=== PATIENT | female | born 1980 | race African-American/Black ===

== ENCOUNTER 2018-01-18 16:00 | Emergency (ER) | payer OTHER ==
[~2018-01-18] VITALS: Ht 167.6 cm; Wt 151.1 kg
[~2018-01-18 16:00] MED LIST: BENTYL 10 MG CA10 M1 PO; IMODIUM A-D2 MG PO; ZOFRAN ODT4 MG PO
[2018-01-18 16:35] LABS: URINE BILIRUBIN NEGATIVE (Negative); URINE BLOOD 3+ (Negative); URINE CLARITY CLEAR; URINE COLOR YELLOW; URINE GLUCOSE-RANDOM* NEGATIVE (Negative); URINE KETONES NEGATIVE (Negative); URINE LEUKOCYTES NEGATIVE (Negative); URINE NITRITE NEGATIVE (Negative); URINE PROTEIN (DIPSTICK) NEGATIVE (Negative)
[2018-01-18 16:46] LABS: BACTERIA 1-9 Few /HPF (None Seen); CASTS None Seen /LPF (None Seen); CRYSTALS None Seen /LPF (None Seen); SQUAMOUS 0-3 Few /LPF (0-3); URINE RBC 0-2 Rare /HPF (0-2); URINE WBC None Seen /HPF (0-5)
[2018-01-18 17:50] LABS: ABSOLUTE NEUTROPHILS 3.3 thou/uL (1.4-8.2); BASOPHILS 0.4 % (0.0-2.0); EOSINOPHILS 0.9 % (0.0-3.0); HEMATOCRIT 30.3 % (37.0-47.0); HEMOGLOBIN 9.5 gm/dL (12.0-15.0); LYMPHOCYTES 39.2 % (24.0-44.0); MCH 22.5 pg (26.0-34.0); MCHC 31.5 g/dL (28.0-37.0); MCV 71.3 fL (80.0-100.0); MONOCYTES 11.9 % (1.0-8.0); PLATELET COUNT 356 thou/uL (150-400); POLYS 47.6 % (36.0-66.0); RBC 4.24 mil/uL (4.20-5.00); RDW 18.5 % (10.5-14.5)
[2018-01-18 17:55] LABS: CALCIUM 8.6 mg/dL (8.5-10.1); CREATININE 0.9 mg/dL (0.6-1.0); POTASSIUM 3.3 mmol/L (3.5-5.1)
[2018-01-18] MEDS ORDERED: NORFLEX100 MG PO (18:22)
[2018-01-18] MEDS ORDERED: NAPROSYN500 MG PO (18:22)
[2018-01-18] MEDS ORDERED: PHENERGAN 25 MG25 M1 PO (18:22)
[2018-01-18 18:33] VITALS: BP 165/98
[2018-01-18 19:01] LABS: ANISOCYTOSIS 1+; MICROCYTES 1+
[2018-03-29] MEDS ORDERED: NORCO 5-325 TA1 EACH PO (07:27)
[2018-03-29] MEDS ORDERED: ZOFRAN ODT4 MG PO (08:01)
[2018-03-29] MEDS ORDERED: PHENERGAN 25 MG25 M1 PO (08:01)
== END 2018-01-18 18:34 | disposition home or self-care (01) ==
LOC: ER 16:00
PROVIDERS: Physician Assistant
DX: G44.209 Tension-type headache, unspecified, not intractable (principal); B34.9 Viral infection, unspecified; F17.200 Nicotine dependence, unspecified, uncomplicated; F10.99 Alcohol use, unspecified with unspecified alcohol-induced disorder

== ENCOUNTER 2018-03-31 14:46 | Inpatient (IN) | payer OTHER ==
[~2018-03-31] VITALS: Ht 167.6 cm; Wt 150.3 kg
--- NOTE | ~2018-03-31 | PATH ---
[facility] [address] [place] [address] PATHOLOGY RPT PROCEDURE Name: ISAI DIAMOND Room #: 407-P ADM IN M.R.#: [id number] Admission: 03/31/18 Date of : 78 Discharge: Report #: [id number] Path Case #: [id number] [facility] Accession Number: [id number] . 01 Material submitted: . GALLBLADDER . 02 Diagnosis: Gallbladder, cholecystectomy: - Acute cholecystitis associated with surface ulceration, hemorrhage and fibrinoid degeneration. - Cholelithiasis. - Incidental lymph node. (IUV:pit; 04/02/2018) QTP/04/02/2018 . 02 Electronically signed: . Thais Azevedo MD, Pathologist NPI- [id number] . 01 Gross description: . Received in formalin labeled "Isai Diamond, gallbladder" and consists of an enlarged, glistening, damon, pink, hemorrhagic, and previously opened gallbladder measuring 12.0 cm in length by 5.0 cm in diameter. The wall is pliable and ranges in thickness from 0.2 cm-0.4 cm. The mucosa is roughened, trabeculated, pink, and hemorrhagic. Also within the container are several yellow calculi ranging in size from 0.2 cm-0.5 cm and aggregate to 2.0 x 2.0 x 1.5 cm. Machine Heddle Cleaner sections are submitted as A1. (LARISA; 04/01/2018) JBR/JBR . 02 Pathologist provided ICD-10: K80.00 . 02 CPT . 345525 Performed at: [address], [place], [place] [id number] MD Britton Gordon MD Phone: [phone] Performed at: [address] [id number] MD Thais Azevedo MD Phone: [phone]
--- NOTE | ~2018-03-31 | P ---
[facility] [place] [address] PROCEDURE REPORT Name: ISAI DIAMOND Room #: [facility] IN M.R.#: [id number] Admission: 03/31/18 Attend Phys: Jose Faria MD Discharge: 04/04/18 Date of : 78 Report #: [id number] THIS REPORT FOR: //name// CC: Ricky Julio DO [facility] physician/PCP Chava Faria MD DATE OF SERVICE: 04/03/2018 PROCEDURE PERFORMED: Attempted ERCP. HISTORY OF PRESENT ILLNESS: The patient is a 37-year-old female who was admitted with abdominal pain, noted to have elevated liver function tests. CT scan of the abdomen and pelvis on 03/31/2018 showed distention of the gallbladder. She then underwent a laparoscopic cholecystectomy by Dr. Ricky Julio on 04/01/2018. Intraoperative cholangiogram showed a filling defect in the distal common bile duct. The patient also has elevated liver function test. Bilirubin today at the time of procedure was 2.2. Plan is for ERCP. DESCRIPTION OF PROCEDURE: The risks and benefits of the procedure were explained to the patient, those risks including but not limited to bleeding, perforation, the risk of sedation as well as the potential risk for post-ERCP pancreatitis. She understood these risks and gave informed consent. The procedure was performed in the operating room under general anesthesia. The patient's urine hCG was negative. She was given IV antibiotics prior to the procedure as well as an indomethacin suppository 50 mg. Next, using a standard Olympus ERCP scope, the scope was placed in the patient's mouth and advanced under direct vision through the esophagus, stomach and into the second portion of the duodenum. The major papilla was identified which was normal in appearance. I then attempted to cannulate the common bile duct over the next hour. Despite multiple attempts using different angles as well as different catheters including a Jakob-Cook 0.025 and a 0.021, I was unsuccessful, however cannulating the common bile duct or the pancreatic duct. At this point, the scope was then withdrawn and the procedure terminated. The patient tolerated the procedure well. IMPRESSION: Unsuccessful cannulation of common bile duct. RECOMMENDATIONS: 1. Observe the patient post-procedure and continue to monitor liver function test. 2. The patient may need to have repeat attempt at [facility] by Dr. Tejada or [facility] in the near future. [address] [address] PROCEDURE REPORT Name: ISAI DIAMOND Room #: 407-P [facility] IN M.R.#: [id number] Admission: 03/31/18 Attend Phys: Jose Faria MD Discharge: 04/04/18 Date of : 78 Report #: [id number] Thank you for allowing me to participate in her care. <ELECTRONICALLY SIGNED> By: Hammad Zhong MD 04/05/18 0931 1024 1153 Hammad Zhong MD /cheyenne
--- NOTE | ~2018-03-31 | HC ---
[facility] [place] [address] CONSULTATION Name: ISAI DIAMOND Room #: [facility]-P ADM IN M.R.#: [id number] Admission: 03/31/18 Attend Phys: Jose Faria MD Discharge: Date of : 78 Report #: [id number] THIS REPORT FOR: //name// CC: [facility] physician/PCP Chava Faria DATE OF SERVICE: 03/31/2018 GENERAL SURGERY CONSULTATION REFERRING PROVIDER: Jose Faria MD REASON FOR CONSULT: Abdominal pain. HISTORY OF PRESENT ILLNESS: The patient is a 37-year-old female who has presented to the emergency room for the second time in 2 days with complaints of right upper quadrant abdominal pain and nausea and vomiting. The patient was thoroughly evaluated at her most recent Emergency Room admission with laboratories and an ultrasound of the abdomen. The patient's labs showed completely normal findings and her ultrasound of the abdomen showed only a distended gallbladder with some wall thickening and gallstones, but no tenderness of the gallbladder nor ductal dilatation was seen. The patient was dismissed home with plans for followup; however, as her pain continued, she presented back to the Emergency Room where repeat labs and a CT scan of the abdomen and pelvis were now obtained. The patient's labs continued to be completely within normal limits and her CT scan of the abdomen and pelvis shows again ongoing distention of the gallbladder with no biliary dilatation and no pericholecystic fluid. As the patient's pain is not able to be controlled as an outpatient, she has been admitted and I have been asked to evaluate from a surgical standpoint. PAST MEDICAL HISTORY: Hypertension. HOME MEDICATIONS: [place], Zofran, Phenergan, Norflex, Naprosyn, Bentyl, Imodium. ALLERGIES: No known drug allergies. FAMILY HISTORY: Reviewed and noncontributory. SOCIAL HISTORY: The patient does use tobacco, smokes 1 pack per day and has done so for several years, drinks couple of alcoholic drinks daily and denies illicit drug use. REVIEW OF SYSTEMS: GENERAL: The patient denies nocturnal fevers or chills. [facility] [address] [place] [place] [address] CONSULTATION Name: ISAI DIAMOND Room #: 407-P [facility] IN M.R.#: [id number] Admission: 03/31/18 Attend Phys: Jose Faria MD Discharge: Date of : 78 Report #: [id number] HEENT: No change in vision, change in hearing. NECK: No swelling or difficulty swallowing. HEART: No chest pain or palpitations. LUNGS: No cough or shortness of breath. ABDOMEN: Abdominal pain, nausea and vomiting. GENITOURINARY: No dysuria or hematuria. ENDOCRINE: No polyuria, polydipsia. HEMATOLOGIC: No history of bleeding or easy bruising. EXTREMITIES: No history of weakness or limited range of motion. NEUROLOGIC: No history of syncope or near syncopal episodes. SKIN AND INTEGUMENT: No history of abnormal lesions or moles. PSYCHIATRIC: No history of anxiety or depression. PHYSICAL EXAMINATION: VITAL SIGNS: Temperature 36.8, pulse 64, respirations 20, blood pressure 158/91, she weighs 325 pounds. GENERAL: She is alert, in no acute distress. HEENT: Normocephalic, atraumatic. Pupils equal, round and reactive to light. NECK: Supple, without lymphadenopathy. Trachea midline. HEART: Regular rate and rhythm. LUNGS: Clear to auscultation bilaterally. GASTROINTESTINAL: Abdomen is obese, soft, nondistended. She is tender to palpation in the right upper quadrant, but does not have any guarding, rebound or peritoneal signs or symptoms otherwise. GENITOURINARY: Normal external female genitalia. EXTREMITIES: No clubbing, cyanosis or edema. NEUROLOGIC: Cranial nerves 2-12 are grossly intact. PSYCHIATRIC: Normal mood and affect. SKIN AND INTEGUMENT: No abnormal lesions or moles. LABORATORY AND X-RAY DATA: CBC shows white blood cell count of 8.5 thousand, hemoglobin 9.7, platelets 327,000. Her creatinine is 0.9. Liver function enzymes show an AST of 17, ALT 13, alkaline phosphatase 78 with total bilirubin 0.4, lipase is normal as [address] scan of the abdomen and pelvis as well as ultrasound of the abdomen as per HPI show gallbladder distention, but no inflammatory process. She does have gallstones, however. ASSESSMENT AND PLAN: A 37-year-old obese female who presents with ongoing right upper quadrant abdominal pain, nausea and vomiting; however, has a negative workup thus far for acute cholecystitis. The patient does have gallstones seen on ultrasound and her symptoms are classic for biliary etiology. As such, we will proceed with the laparoscopic cholecystectomy with cholangiogram at the first available opportunity. Risks, benefits and alternatives of that procedure have been discussed with the patient in detail and she agrees to proceed as outlined. [address] [address] CONSULTATION Name: ISAI DIAMOND Room #: 407-P ADM IN M.R.#: [id number] Admission: 03/31/18 Attend Phys: Jose Faria MD Discharge: Date of : 78 Report #: [id number] I sincerely appreciate this consult. Any further recommendations will be left in the patient's medical record as appropriate. <ELECTRONICALLY SIGNED> By: Chava Sawant MD, FACS 04/01/18 1243 [id number] Chava Sawant MD, FACS /nt
--- NOTE | ~2018-03-31 | EKG ---
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
[~2018-03-31 14:46] MED LIST changes: +NAPROSYN500 MG PO; +NORCO 5-325 TA1 EACH PO; +NORFLEX100 MG PO; +PHENERGAN 25 MG25 M1 PO
[2018-03-31 14:49] VITALS: BP 158/91
[2018-03-31 15:58] LABS: URINE BLOOD 1+ (Negative); URINE CLARITY CLEAR; URINE COLOR YELLOW; URINE GLUCOSE-RANDOM* NEGATIVE (Negative); URINE KETONES TRACE (Negative); URINE NITRITE-REFLEX NEGATIVE (Negative); URINE PROTEIN (DIPSTICK) TRACE (Negative)
[2018-03-31 16:03] LABS: URINE LEUKOCYTES-REFLEX 1+ (Negative)
[2018-03-31 16:05] LABS: ICTOTEST (BILI CONFIRMATORY) Negative (Negative); URINE BILIRUBIN NEGATIVE (Negative)
[2018-03-31 16:09] LABS: ABSOLUTE NEUTROPHILS 5.1 thou/uL (1.4-8.2); BASOPHILS 0.6 % (0.0-2.0); EOSINOPHILS 0.5 % (0.0-3.0); HEMATOCRIT 30.6 % (37.0-47.0); HEMOGLOBIN 9.7 gm/dL (12.0-15.0); LYMPHOCYTES 30.3 % (24.0-44.0); MCH 23.1 pg (26.0-34.0); MCHC 31.8 g/dL (28.0-37.0); MCV 72.6 fL (80.0-100.0); MONOCYTES 8.1 % (1.0-8.0); POLYS 60.5 % (36.0-66.0); RBC 4.22 mil/uL (4.20-5.00); RDW 16.6 % (10.5-14.5); WBC 8.5 thou/uL (4.0-11.0)
[2018-03-31 16:12] LABS: CREATININE 0.9 mg/dL (0.6-1.0); POTASSIUM 3.5 mmol/L (3.5-5.1)
[2018-03-31 16:18] LABS: AMORPHOUS URATES Few /LPF (None Seen); BACTERIA-REFLEX 1-9 Few /HPF (None Seen); CASTS None Seen /LPF (None Seen); SQUAMOUS >10 Many /LPF (0-3); URINE RBC 3-10 Few /HPF (0-2); URINE WBC-REFLEX 6-15 Few /HPF (0-5)
[2018-03-31 16:20] LABS: PLATELET COUNT 327 thou/uL (150-400)
[2018-03-31 16:22] LABS: ALBUMIN 3.3 g/dL (3.4-5.0); TOTAL BILIRUBIN 0.4 mg/dL (<0.1-1.0); TOTAL PROTEIN 7.6 g/dL (6.4-8.2)
[2018-03-31 16:26] LABS: LIPASE 86 U/L (73-393); TROPONIN-I < 0.04 ng/mL (<0.06)
[2018-03-31 17:26] VITALS: BP 158/91
[2018-03-31 20:30] VITALS: BP 161/80
[2018-03-31 20:46] VITALS: BP 134/58
[2018-04-01 06:39] LABS: CALCIUM 8.4 mg/dL (8.5-10.1); CREATININE 0.8 mg/dL (0.6-1.0); POTASSIUM 3.9 mmol/L (3.5-5.1); TOTAL BILIRUBIN 0.4 mg/dL (<0.1-1.0); TOTAL PROTEIN 7.1 g/dL (6.4-8.2)
[2018-04-01 07:05] LABS: HEMATOCRIT 28.4 % (37.0-47.0); HEMOGLOBIN 9.2 gm/dL (12.0-15.0); MCH 23.2 pg (26.0-34.0); MCHC 32.3 g/dL (28.0-37.0); MCV 71.7 fL (80.0-100.0); RBC 3.96 mil/uL (4.20-5.00); RDW 16.7 % (10.5-14.5); WBC 8.3 thou/uL (4.0-11.0)
[2018-04-01 07:11] VITALS: BP 140/90
[2018-04-01 08:15] VITALS: BP 164/76
[2018-04-01 11:30] VITALS: BP 133/74
[2018-04-01 20:04] VITALS: BP 177/82
[2018-04-02 00:17] VITALS: BP 155/72
[2018-04-02 04:49] VITALS: BP 138/55
[2018-04-02 08:18] VITALS: BP 176/58
[2018-04-02 10:04] LABS: CALCIUM 8.8 mg/dL (8.5-10.1); CREATININE 1.3 mg/dL (0.6-1.0); POTASSIUM 3.8 mmol/L (3.5-5.1); TOTAL BILIRUBIN 2.8 mg/dL (<0.1-1.0); TOTAL PROTEIN 7.4 g/dL (6.4-8.2)
[2018-04-02 15:37] VITALS: BP 166/77
[2018-04-02 20:00] VITALS: BP 168/88
[2018-04-03] VITALS: BP 166/79
[2018-04-03 04:00] VITALS: BP 168/82
[2018-04-03 05:21] LABS: ABSOLUTE NEUTROPHILS 4.2 thou/uL (1.4-8.2); BASOPHILS 0.3 % (0.0-2.0); EOSINOPHILS 0.3 % (0.0-3.0); HEMOGLOBIN 8.5 gm/dL (12.0-15.0); LYMPHOCYTES 43.1 % (24.0-44.0); MCH 22.8 pg (26.0-34.0); MCHC 31.5 g/dL (28.0-37.0); MCV 72.5 fL (80.0-100.0); MONOCYTES 8.6 % (1.0-8.0); PLATELET COUNT 305 thou/uL (150-400); POLYS 47.7 % (36.0-66.0); RBC 3.72 mil/uL (4.20-5.00); RDW 16.7 % (10.5-14.5); WBC 8.8 thou/uL (4.0-11.0)
[2018-04-03 05:30] LABS: CALCIUM 8.5 mg/dL (8.5-10.1); POTASSIUM 3.6 mmol/L (3.5-5.1)
[2018-04-03 05:44] LABS: ALBUMIN 2.9 g/dL (3.4-5.0); DIRECT BILIRUBIN 1.8 mg/dL (<0.1-0.3); TOTAL BILIRUBIN 2.2 mg/dL (<0.1-1.0); TOTAL PROTEIN 6.5 g/dL (6.4-8.2)
[2018-04-03 05:52] LABS: ANISOCYTOSIS 1+; HYPOCHROMASIA 1+; MICROCYTES 2+; PLATELET ESTIMATE NORMAL
[2018-04-03 07:05] VITALS: BP 172/75
[2018-04-03 15:55] VITALS: BP 194/96
[2018-04-03 20:30] VITALS: BP 179/82
[2018-04-04 00:49] VITALS: BP 145/71
[2018-04-04 04:02] LABS: ALBUMIN 2.8 g/dL (3.4-5.0); DIRECT BILIRUBIN 2.2 mg/dL (<0.1-0.3); TOTAL BILIRUBIN 2.5 mg/dL (<0.1-1.0); TOTAL PROTEIN 7.1 g/dL (6.4-8.2)
[2018-04-04 04:48] VITALS: BP 164/70
[2018-04-04 07:35] VITALS: BP 139/63
== END 2018-04-04 08:45 | disposition other institution (70) | DRG 418 ==
LOC: ER 14:46 → 4N 17:32 → EROBS 17:32 → 4N 19:40
PROVIDERS: Hospitalist; Internal Medicine Gastroenterology; Nurse Practitioner; Physician Assistant; Surgery
PROC: BF121ZZ Fluoroscopy of Gallbladder using Low Osmolar Contrast (ICD-10-PCS; principal; 2018-04-01)
PROC: 0FT44ZZ Resection of Gallbladder, Percutaneous Endoscopic Approach (ICD-10-PCS; principal; 2018-04-01)
DX: K80.67 Calculus of gallbladder and bile duct with acute and chronic cholecystitis with obstruction (principal); Z68.43 Body mass index [BMI] 50.0-59.9, adult; I10 Essential (primary) hypertension; F17.210 Nicotine dependence, cigarettes, uncomplicated; Z53.8 Procedure and treatment not carried out for other reasons; E66.01 Morbid (severe) obesity due to excess calories; E86.0 Dehydration; K21.9 Gastro-esophageal reflux disease without esophagitis; K82.8 Other specified diseases of gallbladder; Z79.899 Other long term (current) drug therapy
CPT/HCPCS: 10091; 50010; 50101; 50249; 50411; 50555; 50558; 50962; 51489; 51975; 52265; 53307; 53310; 54022; 54118; 55245; 55317; 56462; 56525; 56526; 56639; 62110; 62900; 65131; 70005

== ENCOUNTER 2019-06-25 15:49 | Emergency (ER) | payer OTHER ==
[~2019-06-25] VITALS: Ht 167.6 cm; Wt 145.2 kg
[2019-06-25 16:30] LABS: URINE BILIRUBIN NEGATIVE (Negative); URINE BLOOD 3+ (Negative); URINE CLARITY CLEAR; URINE COLOR YELLOW; URINE GLUCOSE-RANDOM* NEGATIVE (Negative); URINE KETONES NEGATIVE (Negative); URINE NITRITE-REFLEX NEGATIVE (Negative); URINE PROTEIN (DIPSTICK) 1+ (Negative); URINE SPECIFIC GRAVITY 1.015 (1.005-1.035); URINE UROBILINOGEN 0.2 E.U./dl (0.2-1.0)
[2019-06-25 16:33] LABS: URINE LEUKOCYTES-REFLEX 1+ (Negative)
[2019-06-25 16:45] LABS: SQUAMOUS 0-3 Few /LPF (0-3)
[2019-06-25 16:46] LABS: CASTS None Seen /LPF (None Seen); CRYSTALS None Seen /LPF (None Seen); URINE RBC 3-10 Few /HPF (0-2); URINE WBC-REFLEX >25 Many /HPF (0-5)
[2019-06-25] MEDS ORDERED: KEFLEX500 M1 PO (16:47)
[2019-06-25 17:25] VITALS: BP 164/99
== END 2019-06-25 17:25 | disposition home or self-care (01) ==
LOC: ER 15:49
PROVIDERS: Physician Assistant
DX: N39.0 Urinary tract infection, site not specified (principal); F17.210 Nicotine dependence, cigarettes, uncomplicated; I10 Essential (primary) hypertension; Z98.890 Other specified postprocedural states

== ENCOUNTER 2019-07-17 12:33 | Emergency (ER) | payer OTHER ==
[~2019-07-17] VITALS: Ht 167.6 cm; Wt 147.0 kg
[~2019-07-17 12:33] MED LIST changes: +KEFLEX500 M1 PO
[2019-07-17 12:55] LABS: URINE BILIRUBIN NEGATIVE (Negative); URINE BLOOD 1+ (Negative); URINE CLARITY CLEAR; URINE COLOR YELLOW; URINE GLUCOSE-RANDOM* NEGATIVE (Negative); URINE KETONES TRACE (Negative); URINE LEUKOCYTES 1+ (Negative); URINE NITRITE NEGATIVE (Negative); URINE PROTEIN (DIPSTICK) 1+ (Negative); URINE SPECIFIC GRAVITY 1.025 (1.005-1.035)
[2019-07-17 13:04] LABS: BACTERIA None Seen /HPF (None Seen); CASTS None Seen /LPF (None Seen); CRYSTALS None Seen /LPF (None Seen); SQUAMOUS >10 Many /LPF (0-3); URINE RBC 3-10 Few /HPF (0-2)
[2019-07-17 15:02] LABS: ABSOLUTE NEUTROPHILS 3.7 thou/uL (1.4-8.2); BASOPHILS 0.9 % (0.0-2.0); EOSINOPHILS 0.9 % (0.0-3.0); HEMATOCRIT 37.1 % (37.0-47.0); HEMOGLOBIN 11.5 gm/dL (12.0-15.0); LYMPHOCYTES 38.3 % (24.0-44.0); MCH 22.9 pg (26.0-34.0); MCHC 30.9 g/dL (28.0-37.0); MONOCYTES 7.6 % (1.0-8.0); PLATELET COUNT 370 thou/uL (150-400); POLYS 52.3 % (36.0-66.0); RBC 5.02 mil/uL (4.20-5.00); RDW 18.7 % (10.5-14.5); WBC 7.1 thou/uL (4.0-11.0)
[2019-07-17 15:06] LABS: ANION GAP 8 mmol/L (7-16); BUN 10 mg/dL (7-18); CALCIUM 9.1 mg/dL (8.5-10.1); CHLORIDE 104 mmol/L (98-107); CO2 26 mmol/L (21-32); CREATININE 0.9 mg/dL (0.6-1.0); GLUCOSE 77 mg/dL (74-106); POTASSIUM 3.9 mmol/L (3.5-5.1); SODIUM 138 mmol/L (136-145)
[2019-07-17 15:17] LABS: ALBUMIN 3.2 g/dL (3.4-5.0); SGOT 15 U/L (15-37); SGPT 11 U/L (30-65); TOTAL BILIRUBIN 0.2 mg/dL (<0.1-1.0); TOTAL PROTEIN 8.1 g/dL (6.4-8.2); TROPONIN-I <0.06 ng/mL (<0.06)
[2019-07-17] MEDS ORDERED: BACTRIM DS TAB1 EACH PO (15:43)
[2019-07-17 15:46] VITALS: BP 164/103
[2019-07-17 16:32] LABS: ANISOCYTOSIS SLIGHT
[2019-07-17 16:33] LABS: HYPOCHROMASIA SLIGHT; MICROCYTES SLIGHT
--- NOTE | 2019-07-19 14:08 | EKG ---
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1980 Requested By: Ayan Lloyd Order Number: [id number] MD: Giles Oliver Measurements Intervals [place] Rate: 81 P: 41 OR: 164 QRS: -5 QRSD: 100 T: 17 QT: 382 QTc: 444 Interpretive Statements Sinus rhythm Poor R wave progression Compared to ECG 03/31/2018 17:13:26 Sinus bradycardia is no longer present Electronically Signed On 07-19-2019 14:07:53 CDT by Giles Oliver [email or web address] ��������������������������������������������� <ELECTRONICALLY SIGNED> ���������������������������������������� By: Giles Oliver MD, [facility] ��������������������������������������������� 07/19/19 1407 1243 1243 Giles Oliver MD, FACC /EPI
== END 2019-07-17 16:16 | disposition home or self-care (01) ==
LOC: ER 12:33
PROVIDERS: Emergency Medicine
DX: N39.0 Urinary tract infection, site not specified (principal); R42 Dizziness and giddiness; R11.0 Nausea; F17.210 Nicotine dependence, cigarettes, uncomplicated; I10 Essential (primary) hypertension; Z98.890 Other specified postprocedural states

== ENCOUNTER 2020-01-16 11:28 | Emergency (ER) | payer OTHER ==
[~2020-01-16] VITALS: Ht 167.6 cm; Wt 152.0 kg
[~2020-01-16 11:28] MED LIST changes: +BACTRIM DS TAB1 EACH PO
[2020-01-16] MEDS ORDERED: PROMETH-CODEIN 65 ML PO (13:47)
[2020-01-16 14:32] VITALS: BP 164/89
== END 2020-01-16 14:32 | disposition home or self-care (01) ==
LOC: ER 11:28
DX: R51 Headache (principal); R50.9 Fever, unspecified; R05 Cough; M79.10 Myalgia, unspecified site; I10 Essential (primary) hypertension; F17.210 Nicotine dependence, cigarettes, uncomplicated

== ENCOUNTER 2020-06-27 15:46 | Emergency (ER) | payer OTHER ==
[~2020-06-27] VITALS: Ht 167.6 cm; Wt 154.7 kg
[~2020-06-27 15:46] MED LIST changes: +PROMETH-CODEIN 65 ML PO
[2020-06-27] MEDS ORDERED: NORCO 5-325 TA1 EAC2 PO (18:11)
[2020-06-27] MEDS ORDERED: PENICILLIN V P500 MG PO (18:11)
[2020-06-27 18:22] VITALS: BP 179/84
== END 2020-06-27 18:23 | disposition home or self-care (01) ==
LOC: ER 15:46
DX: K08.89 Other specified disorders of teeth and supporting structures (principal); I10 Essential (primary) hypertension; F17.210 Nicotine dependence, cigarettes, uncomplicated

== ENCOUNTER 2020-07-27 19:57 | Emergency (ER) | payer OTHER ==
[~2020-07-27] VITALS: Ht 167.6 cm; Wt 156.5 kg
[~2020-07-27 19:57] MED LIST changes: +NORCO 5-325 TA1 EAC2 PO; +PENICILLIN V P500 MG PO
[2020-07-27 21:42] VITALS: BP 165/78
--- NOTE | 2020-07-28 07:11 | EKG ---
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
== END 2020-07-27 21:42 | disposition home or self-care (01) ==
LOC: ER 19:57
DX: J02.9 Acute pharyngitis, unspecified (principal); R51 Headache; R05 Cough; R19.7 Diarrhea, unspecified; R43.8 Other disturbances of smell and taste; R07.9 Chest pain, unspecified; I10 Essential (primary) hypertension; Z20.828 Contact with and (suspected) exposure to other viral communicable diseases; F17.210 Nicotine dependence, cigarettes, uncomplicated; Z98.890 Other specified postprocedural states; Z88.4 Allergy status to anesthetic agent

== ENCOUNTER 2021-11-16 17:09 | Emergency (ER) | payer OTHER ==
[~2021-11-16] VITALS: Ht 167.6 cm; Wt 155.1 kg
[2021-11-16 17:11] VITALS: BP 174/109
[2021-11-16] MEDS ORDERED: IBUPROFEN 800800 M1 PO (18:35)
== END 2021-11-16 19:01 | disposition home or self-care (01) ==
LOC: ER 17:09
DX: M25.562 Pain in left knee (principal); M25.762 Osteophyte, left knee; I10 Essential (primary) hypertension; E66.9 Obesity, unspecified; F17.210 Nicotine dependence, cigarettes, uncomplicated; Z88.8 Allergy status to other drugs, medicaments and biological substances